=== PATIENT | male | born 1970 | race Caucasian/White ===

== ENCOUNTER 2018-01-05 12:53 | Outpatient (CLI) | END 2018-01-05 12:54 | disposition home or self-care (01) | LOC: LAB 12:53 | PROVIDERS: ATTEND Internal Medicine Hematology & Oncology | DX: D75.1 Secondary polycythemia (principal) | CPT/HCPCS: 36415; 85025 ==

== ENCOUNTER 2018-01-14 07:47 | Outpatient (CLI) ==
--- NOTE | 2018-01-14 08:22 | US ---
EXAM: Right upper quadrant abdominal ultrasound. History: Elevated liver enzymes. Technique: Multiple sonographic images through the abdomen were obtained. Color duplex Doppler was used to interrogate vascular flow. Findings: The liver is enlarged measuring 17.6 cm in length. The liver is diffusely echogenic. No focal liver lesions identified sonographically. There is antegrade flow within the main portal vein. The pancreas was not well visualized due to obscuration by bowel gas. No abdominal ascites. Limit ed visualization of the right kidney demonstrates no evidence for hydronephrosis. No shadowing galls tones. Gallbladder wall is not thickened. Common bile duct measures 0.4 cm in caliber. Impression: 1. Hepatic steatosis. 2. Mild hepatomegaly
--- NOTE | 2018-01-14 09:12 | DI ---
EXAM: Two views of the chest. History: Chest pain, abnormal laboratory values. Findings: Heart size is normal. No focal consolidation. No appreciable pleural fluid and no pneumo thorax. Subsegmental atelectasis seen at the left lung base. No acute osseous abnormalities. Impression: No acute cardiopulmonary process
== END 2018-01-14 07:48 | disposition home or self-care (01) ==
LOC: RAD 07:47
PROVIDERS: ATTEND Internal Medicine Hematology & Oncology
DX: D75.1 Secondary polycythemia (principal); R79.89 Other specified abnormal findings of blood chemistry
CPT/HCPCS: 36415; 85025

== ENCOUNTER 2018-01-20 15:51 | Outpatient (CLI) | END 2018-01-20 15:52 | disposition home or self-care (01) | LOC: LAB 15:51 | PROVIDERS: ATTEND Internal Medicine Hematology & Oncology | DX: D75.1 Secondary polycythemia (principal) | CPT/HCPCS: 36415; 85025 ==

== ENCOUNTER 2018-01-27 15:55 | Outpatient (CLI) | END 2018-01-27 15:56 | disposition home or self-care (01) | LOC: LAB 15:55 | PROVIDERS: ATTEND Internal Medicine Hematology & Oncology | DX: D75.1 Secondary polycythemia (principal) | CPT/HCPCS: 36415; 85025 ==

== ENCOUNTER 2018-02-02 16:00 | Outpatient (CLI) | END 2018-02-02 16:01 | disposition home or self-care (01) | LOC: LAB 16:00 | PROVIDERS: ATTEND Internal Medicine Hematology & Oncology | DX: D75.1 Secondary polycythemia (principal) | CPT/HCPCS: 36415; 85025 ==

== ENCOUNTER 2018-04-23 15:48 | Outpatient (CLI) | END 2018-04-23 15:49 | disposition home or self-care (01) | LOC: LAB 15:48 | PROVIDERS: ATTEND Internal Medicine Hematology & Oncology | DX: D75.1 Secondary polycythemia (principal) | CPT/HCPCS: 36415; 80053 ==